=== PATIENT | male | born 1980 | race Caucasian/White ===

== ENCOUNTER 2018-03-01 12:55 | Emergency (ER) | payer OTHER ==
[~2018-03-01] VITALS: Ht 182.9 cm; Wt 102.1 kg
[~2018-03-01 12:55] MED LIST: CYCL10; PANT40 PO
[2018-03-01] MEDS ORDERED: QUET100 PO (13:13)
[2018-03-01] MEDS ORDERED: Lisinopril2.5 MG PO (13:13)
[2018-03-01] MEDS ORDERED: VENL25 PO (13:14)
[2018-03-01] MEDS ORDERED: ATEN25 PO (13:14)
[2018-03-01] MEDS ORDERED: HYDR1TAB94 PO (14:32)
[2018-03-01] MEDS ORDERED: Keflex500 MG PO (14:32)
[2018-03-01] MEDS ORDERED: Crutch1 EACH XX (14:33)
== END 2018-03-01 16:09 | disposition home or self-care (01) ==
LOC: ER 12:55
DX: S92.331B Displaced fracture of third metatarsal bone, right foot, initial encounter for open fracture (principal); S71.131A Puncture wound without foreign body, right thigh, initial encounter; F41.9 Anxiety disorder, unspecified; I10 Essential (primary) hypertension; Z79.899 Other long term (current) drug therapy; W34.09XA Accidental discharge from other specified firearms, initial encounter
CPT/HCPCS: 73630; 99285-25

== ENCOUNTER 2022-03-20 20:31 | Inpatient (IN) | payer OTHER ==
[~2022-03-20] VITALS: Ht 188 cm; Wt 81.7 kg
[~2022-03-20 20:31] MED LIST changes: +ATEN25 PO; +Crutch1 EACH XX; +HYDR1TAB94 PO; +Keflex500 MG PO; +Lisinopril2.5 MG PO; +QUET100 PO; +VENL25 PO
[2022-03-20 20:46] LABS: BASOPHILS ABSOLUTE AUTO 0.02 K/mm3 (0.00-0.23); BASOPHILS PERCENT AUTO 0 % (0-2); EOSINOPHILS ABSOLUTE AUTO 0.25 K/mm3 (0.00-0.68); EOSINOPHILS PERCENT AUTO 3 % (0-6); Hematocrit 36.8 % (37.0-53.0); IMMATURE GRAN ABSOLUTE AUTO 0.01 K/mm3 (0.00-0.10); IMMATURE GRAN PERCENT AUTO 0 % (0-1); LYMPHOCYTES ABSOLUTE AUTO 3.41 K/mm3 (0.84-5.20); LYMPHOCYTES PERCENT AUTO 47 % (21-46); MONOCYTES ABSOLUTE AUTO 0.62 K/mm3 (0.16-1.47); MONOCYTES PERCENT AUTO 9 % (4-13); Mean Corpuscular HGB 21.5 pg (26.0-34.0); Mean Corpuscular HGB Conc 32.6 g/dL (31.5-36.5); Mean Corpuscular Volume 66 fL (80-100); Mean Platelet Volume 10.1 fL (9.1-12.4); NEUTROPHILS ABSOLUTE AUTO 2.94 K/mm3 (1.96-9.15); NEUTROPHILS PERCENT AUTO 41 % (41-73); NRBC ABSOLUTE 0.02 K/mm3 (0.00-0.02); NRBC Auto 0.3 /100 WBC (0.0-0.2); Platelet Count 256 K/mm3 (150-400); RDW Coefficient Variation 14.1 % (11.7-14.2); RDW Standard Deviation 32.7 fL (35.1-46.3); Red Blood Cell Count 5.58 M/mm3 (4.30-5.90); White Blood Cell Count 7.25 K/mm3 (4.00-11.30)
[2022-03-20 21:01] LABS: International Normalized Ratio 1.07; Prothrombin Time Results 11.2 Sec (9.7-11.5)
[2022-03-20 21:07] LABS: Ethanol (Alcohol), Blood, Med <3 mg/dL
[2022-03-20 21:08] LABS: Alanine Aminotransfer (ALT/SGP 40 U/L (12-78); Albumin, Blood 3.3 g/dL (3.4-5.0); Albumin/Globulin Ratio 1.2 (0.8-1.8); Alk Phos 88 U/L (50-136); Anion Gap 8 mmol/L (6-16); Aspartate Aminotrans (AST/SGOT 26 U/L (12-37); Bilirubin, Total 0.5 mg/dL (0.1-1.0); Blood Urea Nitrogen 15 mg/dL (8-24); Bun/Creatinine Ratio 18.2 (12.0-20.0); CO2, Blood 25 mmol/L (21-32); Calcium, Blood 8.6 mg/dL (8.5-10.1); Chloride, Blood 108 mmol/L (98-108); Creatinine, Blood 0.82 mg/dL (0.60-1.20); Globulin, Blood 2.7 g/dL (2.2-4.0); Glomerular Filtration Rate 112 (60-); Glucose, Blood 140 mg/dL (70-99); Potassium, Blood 3.7 mmol/L (3.5-5.5); Sodium, Blood 141 mmol/L (136-145)
[2022-03-21] MEDS ORDERED: DOXE10 (00:53)
[2022-03-21] MEDS ORDERED: METF500 (00:55)
[2022-03-21] MEDS ORDERED: ATOR10 (00:55)
[2022-03-21 02:35] LABS: SARS-Cov-2 (COVID-19) PCR, MMC NEGATIVE (NEGATIVE)
[2022-03-21 05:08] LABS: Hematocrit 40.5 % (37.0-53.0); Hemoglobin 12.9 g/dL (13.5-17.5); Mean Corpuscular HGB 21.3 pg (26.0-34.0); Mean Corpuscular HGB Conc 31.9 g/dL (31.5-36.5); Mean Corpuscular Volume 67 fL (80-100); Mean Platelet Volume 10.1 fL (9.1-12.4); Platelet Count 280 K/mm3 (150-400); RDW Coefficient Variation 14.1 % (11.7-14.2); RDW Standard Deviation 33.1 fL (35.1-46.3); Red Blood Cell Count 6.05 M/mm3 (4.30-5.90); White Blood Cell Count 10.23 K/mm3 (4.00-11.30)
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
[2022-03-21 05:35] LABS: Bun/Creatinine Ratio 16.1 (12.0-20.0); Calcium, Blood 8.7 mg/dL (8.5-10.1); Creatinine, Blood 0.81 mg/dL (0.60-1.20); Potassium, Blood 4.2 mmol/L (3.5-5.5)
--- NOTE | 2022-03-21 08:35 | NUR ---
INTO SDS ADMISSION TO UNIT STARTED VSS WITH ELEVATED PULSE STATES IN PAIN AT 7-8 LEVEL AFTER DOCTOR SAW AND ASSESSED PATIENT.
--- NOTE | 2022-03-21 10:32 | NUR ---
03/21/22 1032 Anne Fischer ANESTHESIA ADMINISTERED PATIENT ANCEF 2GM IV AT 1004 IN THE OR.
[2022-03-21 14:21] LABS: Bun/Creatinine Ratio 13.6 (12.0-20.0); Calcium, Blood 8.6 mg/dL (8.5-10.1); Creatinine, Blood 0.74 mg/dL (0.60-1.20); Potassium, Blood 4.4 mmol/L (3.5-5.5)
[2022-03-21 14:22] LABS: Hematocrit 36.5 % (37.0-53.0); Hemoglobin 11.5 g/dL (13.5-17.5); Mean Corpuscular HGB 21.1 pg (26.0-34.0); Mean Corpuscular HGB Conc 31.5 g/dL (31.5-36.5); Mean Corpuscular Volume 67 fL (80-100); Mean Platelet Volume 10.4 fL (9.1-12.4); NRBC ABSOLUTE 0.02 K/mm3 (0.00-0.02); NRBC Auto 0.2 /100 WBC (0.0-0.2); Platelet Count 342 K/mm3 (150-400); RDW Coefficient Variation 14.6 % (11.7-14.2); Red Blood Cell Count 5.46 M/mm3 (4.30-5.90); White Blood Cell Count 10.88 K/mm3 (4.00-11.30)
--- NOTE | 2022-03-21 15:00 | NUR ---
PT ARRIVED BACK TO THE ROOM AT APPROXIMATELY 1500. PT AWAKE AND ORIENTED. PT REPORTED PAIN AT 7/10. PT IS PLEASANT AND TALKING WITH STAFF AND FAMILY. L THIGH IS SWOLLEN BUT REMAINS SOFT. PULSES PRESENT AND CAP REFIL WNL TO BLE. PT IS TACHYCARDIC 112-120.
--- NOTE | 2022-03-21 17:18 | NUR ---
ELEVATED HR PT'S HR INCREASED AND SUSTAINED 144, DESPITE ATENOLOL. DR. VALLEJO NOTIFIED AT 1620. EKG COMPLETED, T4 LAB ORDERED PER DR. VALLEJO AND RESULT OF EKG GIVEN TO DR. VALLEJO. PT'S HR DECREASED TO 111 AT TIME OF EKG. PT ASYMPTOMATIC OF ELEVATED HR.
--- NOTE | 2022-03-21 19:15 | NUR ---
SHIFT SUMMARY PT IS POD#0. PAIN MANAGED WITH PO PAIN MEDICATION. PT ABLE TO TOLERATE PO. PT'S MOTHER WAS AT THE BEDSIDE FOR SUPPORT. REPORT GIVEN TO ENRIQUE MARMOLEJO.
[2022-03-22 04:18] LABS: BASOPHILS ABSOLUTE AUTO 0.01 K/mm3 (0.00-0.23); BASOPHILS PERCENT AUTO 0 % (0-2); EOSINOPHILS PERCENT AUTO 0 % (0-6); Hematocrit 27.8 % (37.0-53.0); Hemoglobin 8.7 g/dL (13.5-17.5); IMMATURE GRAN ABSOLUTE AUTO 0.02 K/mm3 (0.00-0.10); IMMATURE GRAN PERCENT AUTO 0 % (0-1); LYMPHOCYTES ABSOLUTE AUTO 1.25 K/mm3 (0.84-5.20); LYMPHOCYTES PERCENT AUTO 21 % (21-46); MONOCYTES ABSOLUTE AUTO 1.04 K/mm3 (0.16-1.47); MONOCYTES PERCENT AUTO 18 % (4-13); Mean Corpuscular HGB 21.1 pg (26.0-34.0); Mean Corpuscular HGB Conc 31.3 g/dL (31.5-36.5); Mean Corpuscular Volume 68 fL (80-100); Mean Platelet Volume 10.4 fL (9.1-12.4); NEUTROPHILS ABSOLUTE AUTO 3.62 K/mm3 (1.96-9.15); NEUTROPHILS PERCENT AUTO 61 % (41-73); NRBC ABSOLUTE 0.02 K/mm3 (0.00-0.02); NRBC Auto 0.3 /100 WBC (0.0-0.2); Platelet Count 215 K/mm3 (150-400); RDW Coefficient Variation 14.3 % (11.7-14.2); RDW Standard Deviation 33.6 fL (35.1-46.3); Red Blood Cell Count 4.12 M/mm3 (4.30-5.90); White Blood Cell Count 5.94 K/mm3 (4.00-11.30)
[2022-03-22 04:53] LABS: Bun/Creatinine Ratio 16.4 (12.0-20.0); Calcium, Blood 8.2 mg/dL (8.5-10.1); Creatinine, Blood 0.79 mg/dL (0.60-1.20); Magnesium, Blood 1.7 mg/dL (1.6-2.4); Potassium, Blood 4.6 mmol/L (3.5-5.5)
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
--- NOTE | 2022-03-22 08:12 | NUR ---
CHLOE CLARIFIED WITH DR. LPOEZ THAT IT IS OK TO GIVE LOVENOX. PER DR. LOPZE OK TO START LOVENOX.
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
--- NOTE | 2022-03-22 13:26 | NUR ---
REPORT GIVEN TO COURTNEY MARMOLEJO.
--- NOTE | 2022-03-23 01:31 | NUR ---
assumed care of pt following receiving report from previous rn wale. pt sleeping in bed, bed in lowest position, call light within reach, bed rails up x 2
--- NOTE | 2022-03-23 04:03 | NUR ---
ATTENDS CHANGE, REPOSITIONED. PT A/O X 4, PLEASANT/COOPERATIVE, DENIES NEED FOR ANALGESIA AT THIS TIME. BED IN LOWEST POSITION, CALL LIGHT WITHIN REACH, PILLOW UNDER L ARM
--- NOTE | 2022-03-23 04:52 | NUR ---
pt awakened for morning lab/vitals, a/o x 4, pleasant/cooperative, rates pain at 7/10 in low back/l leg. provided analgesia per mar, bed in lowest position, bed rails up x 2, call light within reach
[2022-03-23 05:03] LABS: BASOPHILS ABSOLUTE AUTO 0.02 K/mm3 (0.00-0.23); BASOPHILS PERCENT AUTO 0 % (0-2); EOSINOPHILS ABSOLUTE AUTO 0.08 K/mm3 (0.00-0.68); EOSINOPHILS PERCENT AUTO 1 % (0-6); Hematocrit 21.9 % (37.0-53.0); Hemoglobin 7.1 g/dL (13.5-17.5); IMMATURE GRAN ABSOLUTE AUTO 0.02 K/mm3 (0.00-0.10); IMMATURE GRAN PERCENT AUTO 0 % (0-1); LYMPHOCYTES ABSOLUTE AUTO 1.73 K/mm3 (0.84-5.20); LYMPHOCYTES PERCENT AUTO 29 % (21-46); MONOCYTES ABSOLUTE AUTO 0.61 K/mm3 (0.16-1.47); MONOCYTES PERCENT AUTO 10 % (4-13); Mean Corpuscular HGB 21.3 pg (26.0-34.0); Mean Corpuscular HGB Conc 32.4 g/dL (31.5-36.5); Mean Corpuscular Volume 66 fL (80-100); Mean Platelet Volume 10.4 fL (9.1-12.4); NEUTROPHILS ABSOLUTE AUTO 3.46 K/mm3 (1.96-9.15); NEUTROPHILS PERCENT AUTO 59 % (41-73); Platelet Count 204 K/mm3 (150-400); RDW Coefficient Variation 14.2 % (11.7-14.2); RDW Standard Deviation 33.4 fL (35.1-46.3); Red Blood Cell Count 3.34 M/mm3 (4.30-5.90); White Blood Cell Count 5.92 K/mm3 (4.00-11.30)
[2022-03-23 05:55] LABS: Albumin, Blood 2.6 g/dL (3.4-5.0); Anion Gap 6 mmol/L (6-16); Blood Urea Nitrogen 10 mg/dL (8-24); Bun/Creatinine Ratio 13.3 (12.0-20.0); CO2, Blood 28 mmol/L (21-32); Calcium, Blood 7.8 mg/dL (8.5-10.1); Chloride, Blood 107 mmol/L (98-108); Creatinine, Blood 0.75 mg/dL (0.60-1.20); Glomerular Filtration Rate 115 (60-); Glucose, Blood 150 mg/dL (70-99); Phosphorus, Blood 2.3 mg/dL (2.5-4.9); Potassium, Blood 3.9 mmol/L (3.5-5.5); Sodium, Blood 141 mmol/L (136-145)
[2022-03-23 08:41] LABS: Hematocrit 21.3 % (37.0-53.0)
[2022-03-23] MEDS ORDERED: Percocet 5-3251 EACH PO (08:48)
[2022-03-23] MEDS ORDERED: ASPI81CH PO (08:48)
[2022-03-23] MEDS ORDERED: SULTRIDS PO (08:48)
[2022-03-23 09:27] LABS: Percent Saturation 11.5 % (20.0-50.0)
[2022-03-23 13:42] LABS: Hematocrit 29.1 % (37.0-53.0); Hemoglobin 9.5 g/dL (13.5-17.5)
[2022-03-23] MEDS ORDERED: ACET325 PO (14:01)
--- NOTE | 2022-03-23 14:02 | NUR ---
DISCHARGE NOTE: PATIENT WAS EDUCATED ON DISCHARGE INSTRUCTIONS. HE VERBALIZED UNDERSTANDING OF INSTRUCTIONS AND HAD NO FURTHER QUESTIONS. HARD PERSCRIPTIONS WERE GIVEN TO HIS MOM WHO GOT THEM FILLED OUT AND ARE WAITING FOR HIM AT HOME. LEFT HIP/LEG HAS 4 INCISION SITES THAT HAVE AQUACELS THAT ARE C/D/I. HE DENIES NUMBNESS AND TINGLING. CAN MOVE FINGERS AND TOES WHEN ASKED. HE IS VOIDING AND TOLERATING PO INTAKE AND IS PASSING GAS. PAIN IS MANAGED WITH PO PAIN MEDICATION. HE IS AWARE TO KEEP HIS LEFT LEG TOE TOUCH WEIGHT BEARING. PATIENT IS GETTING DRESSED AND HAS ITEMS IN THE ROOM GATHERED. HE IS BEING WHEELCHAIRED OUT TO HIS MOTHERS CAR TO BE TAKEN HOME.
== END 2022-03-23 14:38 | disposition home health service (06) | DRG 481 ==
LOC: ER 20:31 → SURS 22:33
PROVIDERS: Emergency Medicine; Family Medicine; Orthopaedic Surgery; ADMIT Internal Medicine
PROC: 0QS706Z Reposition Left Upper Femur with Intramedullary Internal Fixation Device, Open Approach (ICD-10-PCS; principal; 2022-03-21 08:30)
PROC: 30233N1 Transfusion of Nonautologous Red Blood Cells into Peripheral Vein, Percutaneous Approach (ICD-10-PCS; 2022-03-21 08:30)
DX: S72.22 Displaced subtrochanteric fracture of left femur (principal); D62 Acute posthemorrhagic anemia; Z20.822 Contact with and (suspected) exposure to COVID-19; E11.9 Type 2 diabetes mellitus without complications; I10 Essential (primary) hypertension; F41.9 Anxiety disorder, unspecified; R00.0 Tachycardia, unspecified; Z88.8 Allergy status to other drugs, medicaments and biological substances; Z79.899 Other long term (current) drug therapy; Z79.84 Long term (current) use of oral hypoglycemic drugs; Z98.1 Arthrodesis status; W34.00XA Accidental discharge from unspecified firearms or gun, initial encounter
CPT/HCPCS: 29505; 36415; 72170; 73551; 73701; 74176; 80048; 80053; 80069; 82607; 82728; 82746; 82947; 83540; 83550; 83690; 83735; 84439; 85014; 85018; 85025; 85027; 85610; 86850; 86900; 86901; 86923; 93005; 93010; 94760; 96374-59; 96375; 96375-59; 96376; 96376-59; 97110; 97116; 97162; 97166; 97530; 97535; 99285-25; A9270; C1713; C1769; G0378; G0480; J0330; J0690; J1100; J1170; J1650; J1815; J1885; J2060; J2270; J2405; J2704; J3010; J3480; J7030; J7120; P9016; Q9967; U0004